=== PATIENT | male | born 1980 | race Caucasian/White ===

== ENCOUNTER → 2019-10-22 | Outpatient (CLI) | payer OTHER ==
--- NOTE | 2019-10-22 14:33 | RAD ---
Three-view left thumb radiographs 10/22/2019 CLINICAL HISTORY: Left thumb pain. A PA digital radiograph of the left hand was obtained. AP, oblique and lateral digital radiographs of the left thumb were obtained. No fracture or dislocation of the left thumb is seen. Mild degenerative changes are seen involving the first MCP joint. These consist of subchondral sclerosis and mild osteophyte formation. IMPRESSION: Mild degenerative changes are seen involving the first MCP joint. No acute osseous abnormality is seen. Electronically signed by: Deandre Riddle MD (10/22/2019 2:30 PM) [id number]
== END | disposition home or self-care (01) ==
LOC: RAD 11:15
PROVIDERS: ATTEND Physician Assistant
DX: M19.072 Primary osteoarthritis, left ankle and foot (principal); M25.774 Osteophyte, right foot
CPT/HCPCS: 73140